=== PATIENT | female | born 1995 | race American Indian/Alaskan Native ===

== ENCOUNTER 2017-12-01 14:52 | Inpatient (IN) | payer OTHER ==
[~2017-12-01] VITALS: Ht 160 cm; Wt 77.1 kg
[~2017-12-01 14:52] MED LIST: PRENATABS RX T1 EACH PO
== END 2017-12-04 15:44 | disposition home or self-care (01) | DRG 775 ==
LOC: LDR 14:52 → OB/GYN 12-02 21:47
PROC: 10E0XZZ Delivery of Products of Conception, External Approach (ICD-10-PCS; principal; 2017-12-01)
PROC: 4A1HXCZ Monitoring of Products of Conception, Cardiac Rate, External Approach (ICD-10-PCS; 2017-12-01)
DX: O48.0 Post-term pregnancy (principal); Z37.0 Single live birth; Z3A.40 40 weeks gestation of pregnancy

== ENCOUNTER → 2024-12-29 | Emergency (ER) | payer OTHER ==
[~2024-12-29] VITALS: Ht 165.1 cm; Wt 81.6 kg
[2024-12-29 20:26] LABS: HEMATOCRIT 37.2 % (36.0-45.00); HEMOGLOBIN 12.7 g/dL (12.0-15.00); MEAN CELL VOLUME 78.9 fL (80.00-100.00); MEAN CORPUSCULAR HEMOGLOBIN 26.9 pg (27.00-32.0); MEAN CORPUSCULAR HGB CONC 34.1 g/dl (32.0-36.0); PLATELET COUNT 340 K/uL (150-450); RED BLOOD COUNT 4.72 M/uL (4.00-6.00); RED CELL DISTRIBUTION WIDTH 12.6 % (11.5-14.5)
== END | disposition home or self-care (01) ==
LOC: ER 16:40
DX: R51.9 Headache, unspecified (principal)